=== PATIENT | female | born 2000 ===

== ENCOUNTER 2022-08-30 17:20 | Emergency (ER) | payer MEDICAID, SELFPAY ==
[2022-08-30 19:21] VITALS: BP 111/76; PULSE 95; RESP 16; TEMP 36.4; O2SAT 97; BMI 43.9
--- NOTE | 2022-08-30 20:03 | ED.ANIMALBIT ---
HPI - Animal Bite General Chief Complaint: Animal Bite Stated Complaint: dog bite Time Seen by Provider: 08/30/22 19:28 Source: patient and EMS Mode of arrival: EMS Limitations: no limitations History of Present Illness HPI narrative: 21-year-old female presenting to the ER with her mother and her grandmother at bedside via EMS after her neighbor's dog who lives on the 4th floor bit her and her grandmother prior to arrival unprovoked. She reports that she is in college in up-to-date on immunizations. They report they do not know the status of the rabies vaccine for the dog although they do know the wind up operator. She denies any other injuries complaints or concerns at this time. 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) Animal: dog Description of animal: household pet Mechanism: bite Location - Extremities: left: lower leg Context: unprovoked Associated symptoms: none Related Data Patient tetanus UTD: Yes Previous Rx's Medication Instructions Recorded amoxicillin 875 mg-potassium 1 tab PO BID 10 days #20 tabs 08/30/22 clavulanate 125 mg tablet Allergies Allergy/AdvReac Type Severity Reaction Status Date / Time No Known Allergies Allergy Unverified 07/05/20 17:04 [No Known Allergies*] Review of Systems Review of Systems: Constitutional : No Fever, No Chills, Cardiovascular : No Chest Pain, No SOB Respiratory : No Dyspnea Gastrointestinal : No abdominal pain Musculoskeletal : No Joint Swelling Skin : positive skin laceration, No Foreign bodies, No rash, No surrounding erythema Neuro : No Weakness, No Numbness/tingling Psych : No SI/HI/thoughts of self injury Yes all other systems are reviewed and are negative [facility] Past Medical History Attestation statement: The following information was validated with the patient. Source: old records reviewed, obtained from family and nursing notes reviewed Social History Social History Advance Directives: No Advance Directives Information Provided: No Physical Exam ED Vital Signs: Vital Signs - 24 hr 08/30/22 19:21 Temperature 97.5 F Pulse Rate 95 Respiratory Rate 16 Blood Pressure 111/76 Pulse Oximetry 97 Oxygen Delivery Method Room Air BMI result Body Mass Index 43.9 vital signs have been reviewed as normal and appeared to be correct. Blood pressure normal. Heart rate normal. Respiration rate normal. Temperature normal. Oxygen saturation normal. Appearance: Alert. Oriented X3. No acute distress. Head: Normal external exam. Normocephalic. Atraumatic. Eyes: PERRLA. EOMI. Conjunctiva and sclera normal. Eyelids normal. ENT: Pharynx normal. Uvula midline. Moist mucous membranes. No lesions/ulcerations or masses noted on the tongue. Normal voice. No trismus noted. No drooling noted. No muffled voice noted. Neck: Normal inspection. Neck supple. FROM. No adenopathy.No meningeal signs. CVS: Normal heart rate and rhythm. Heart sound normal. Pulses normal throughout. No murmurs/rales/gallops. Respiratory: No respiratory distress. Painless inspiration. Back: Full range of motion noted. Nontender. Skin: Skin warm and dry. Normal skin color. Normal skin turgor. Patient with ecchymosis and superficial abrasion to the left leg right below the knee. No foreign bodies or bony tenderness noted. No addition additional rashes/lesions/lacerations noted. Extremities: Extremities exhibit normal range of motion and nontender. Neuro: Oriented X 3. No motor deficit. No sensory deficit. Reflexes normal. Normal steady gait. No focal neuro deficits noted. CN's II-XII intact bilaterally? Vascular: + radial pulses/+ 2 distal pedal pulses/+2 dorsalis pedis b/l. Normal cap refill. No cyanosis noted to upper extremity nails and lower extremity toes nails. Course Reevaluation(s) Reevaluation #1: Patient with abrasion to the left leg. No imaging indicated. Patient does know where the dog lives in the [facility]. Therefore I explained to the patient and her mother and family that they will need to call animal [employer] and the wind up operator of the dog will have to show rabies vaccine. If the dog is not vaccinated at that time patient at that time can return for rabies vaccine although at this time I do not believe it is indicated. Will DC home with antibiotics and instructions return if any new or worsening symptoms. Patient with mother and grandmother at bedside understand agree this plan. Time: 20:16 [facility] - Animal Bite Medical Records Attestation: I reviewed the patient's medical records. Discharge Plan Discharge Clinical Impression: Dog bite Patient Disposition: Home, Self-Care Instructions: Animal Bite (ED) Additional Instructions: We did not give you the rabies vaccine today due to you know where the dog is located and the wind up operator of the dog. Therefore you should call animal control tomorrow morning and the wind up operator of the dog will have to provide paperwork for rabies. If the wind up operator does not provide proper rabies vaccine of the dog then at that time you will need rabies vaccine although at this time he will not need it. No le dimos la vacuna contra la sarai hoy debido a que sabe d?nde se encuentra el martha y el due?o del martha. Por lo tanto, debe llamar al control de animales ma?zackery por la ma?zackery y el due?o del martha tendr? que proporcionar documentaci?n para la sarai. Si el propietario no proporciona la vacuna adecuada contra la sarai del martha, entonces en [place] momento necesitar? la vacuna contra la sarai, aunque en dipika momento no la necesitar?. Prescriptions: New amoxicillin-pot clavulanate 875-125 mg tablet 1 tab PO BID 10 Days Qty: 20 0RF
== END 2022-08-30 20:19 | disposition home or self-care (01) ==
PROVIDERS: Emergency Provider Emergency Medicine; PCP Pediatrics
DX: S81.852A Open bite, left lower leg, initial encounter (principal); W54.0XXA Bitten by dog, initial encounter; Y93.9 Activity, unspecified; Y92.039 Unspecified place in apartment as the place of occurrence of the external cause; Y99.9 Unspecified external cause status
CPT/HCPCS: 99283

== ENCOUNTER 2024-09-13 14:43 | Outpatient (REF) | payer MEDICAID, SELFPAY ==
[2024-09-18 22:08] LABS: C. trachomatis RNA TMA Not Detected (Not Detected); N. gonorrhoeae RNA TMA Not Detected (Not Detected); Trichomonas (NAAT) Not Detected (Not Detected)
== END 2024-09-13 14:44 | disposition home or self-care (01) ==
LOC: HO.LNP 14:43
PROVIDERS: Visit Provider Family Medicine
DX: Z97.5 Presence of (intrauterine) contraceptive device (principal)
CPT/HCPCS: 87491; 87591; 87661; 88175